=== PATIENT | male | born 1960 | race Caucasian/White ===

== ENCOUNTER 2017-01-11 18:51 | Inpatient (IN) | payer OTHER ==
--- NOTE | ~2017-01-11 | EKG ---
PATIENT: FLAVIO QUINTEROS UNIT #: [id number] Ventricular Rate: 62 BPM Atrial Rate: 62 BPM P-R Interval: 156 ms QRS Duration: 112 ms Q-T Interval: 412 ms QTC Calculation(Bezet): 418 ms P [place]: 76 degrees Calculated R [place]: 17 degrees Calculated T [place]: -28 degrees Diagnosis Line: Normal sinus rhythm Diagnosis Line: Indeterminate axis Diagnosis Line: T wave abnormality, consider inferior ischemia Diagnosis Line: Abnormal ECG Diagnosis Line: When compared with ECG of 12-JAN-2017 10:10, Diagnosis Line: Right bundle branch block is no longer Present Diagnosis Line: Confirmed by NITIN CRESPO MD ([id number]) on 01/14/2017 Diagnosis Line: 7:48:48 PM INTERPRETING MD: CHERIE MAURICE
--- NOTE | ~2017-01-11 | HP ---
Unit #: [id number] #: [id number] Patient: FLAVIO QUINTEROS [id number] [address] [place], [place] [address] [id number] I MR#: [id number] NAME: FLAVIO QUINTEROS ROOM: 567 Age: 56 Sex: M Admission Date: 01/11/2017 : 1960 Attending Physician: Rocael Brown M.D. Primary Care Physician: No Primary Care Physician HISTORY AND PHYSICAL CHIEF COMPLAINT Chest pain. HISTORY Mr. Quinteros is a 56-year-old, white male, known to have insulin dependent diabetes mellitus who awakened at 5:00 this morning with severe nausea, followed by tightness and pressure-like sensation in the lower retrosternal area radiating to the base of the neck, a complaint by diaphoresis, dyspnea and aching pain in the left upper extremity radiating down to the elbow. He denied any radiation of the pain to the intrascapular region or the right subcostal region. He has remained nauseated throughout the day and decided to come to the emergency room. He had not eaten anything unusual the night before. The patient complaints of having has multiple episodes of abdominal pain with bloating nausea over the last month or so and has been occasionally bothered by low retrosternal chest pains. He does not do much physical activity and was still recently busy taking care of an 88-year-old neighbor and denied any chest discomfort or shortness of breath during those chores. He denies any ankle edema, orthopnea, nocturnal dyspnea, syncope, near syncope, transient ischemic attacks or strokes. There is no history of previous SD. SOCIAL HISTORY/PERSONAL HISTORY He smokes half a pack of cigarettes a day and has done that for about 35 years. FAMILY HISTORY Strongly positive for coronary artery disease. His mother, Ms. Kelli Quinteros, had an SD at age 69 and had at age 75. His father, Mr. Ford Quinteros, had his first SD at age 64 and a brother at age 48 of an SD. Two sisters have had coronary artery disease. One sister has PVCs and is under my care. PAST SURGICAL HISTORY Noncontributory. PHYSICAL EXAMINATION GENERAL: Reveals middle age male in no acute cardiorespiratory distress. VITAL SIGNS: Has a blood pressure of 143/79, heart rate is 70 per minute and regular, both carotids have a normal upstroke without any bruits. CARDIAC: Apical impulses normal, both heart sounds are normal, no rubs or clicks are audible, there is no murmur. CHEST: Shows no costochondral tenderness, there is good air entry bilaterally without any rales or rhonchi. ABDOMEN: Shows nontender in intra-abdominal wall, there is no masses or Unit #: [id number] #: [id number] Patient: FLAVIO QUINTEROS organomegaly. RECTAL: Not done. SEARCH LEAD: Within normal limits. DIAGNOSTIC STUDIES CARDIOLOGY STUDIES: Electrocardiogram shows normal sinus rhythm and is within normal limits. LABORATORY STUDIES: Serum troponin level is elevated to 0.97, the rest of the lab investigations are awaited. DIAGNOSIS 1. Chest pain, cannot rule out non ST elevation myocardial infarction. 2. Abdominal pain, nausea and bloating, cannot rule out gallbladder, stones with cholecystitis. 3. Insulin dependent diabetes mellitus. 4. Hypertension. 5. Nicotine abuse. PLAN 1. The patient is being started on long-acting nitrates, Lovenox, Lipitor, lisinopril, and small dose beta-blockers. Intravenous morphine, sulfate and Phenergan will be given to control chest pain and nausea. Repeat cardiac enzymes and electrocardiograms should be performed to rule out evolving SD. He is advised to discontinue use of nicotine completely today. 2. A gallbladder ultrasound would be done tomorrow early in the morning and if normal, will proceed with cardiac catheterization to evaluate coronary artery disease. Dictated by Kathleen Muir/gabrielle TD: 01/12/2017 05:57 JOB #: [id number] HISTORY AND PHYSICAL Page 1 of 1 X Rocael Brown MD HISTORY AND PHYSICAL
--- NOTE | ~2017-01-11 | EKG ---
PATIENT: FLAVIO QUINTEROS UNIT #: [id number] Ventricular Rate: 56 BPM Atrial Rate: 56 BPM P-R Interval: 174 ms QRS Duration: 108 ms Q-T Interval: 426 ms QTC Calculation(Bezet): 411 ms P [place]: 74 degrees Calculated R [place]: 29 degrees Calculated T [place]: 76 degrees Diagnosis Line: Sinus bradycardia Diagnosis Line: Right bundle branch block Diagnosis Line: Abnormal ECG Diagnosis Line: When compared with ECG of 11-JAN-2017 16:43, Diagnosis Line: Right bundle branch block has replaced Incomplete Diagnosis Line: right bundle branch block Diagnosis Line: Confirmed by NITIN CRESPO MD ([id number]) on 01/12/2017 Diagnosis Line: 10:22:44 PM INTERPRETING MD: CHERIE MAURICE
--- NOTE | ~2017-01-11 | DS ---
Unit #: [id number] #: [id number] Patient: FLAVIO QUINTEROS [id number] [address] [place], [place] [address] [id number] I MR#: [id number] NAME: FLAVIO QUINTEROS ROOM: 56 Age: 56 Sex: M Admission Date: 01/11/2017 : 1960 Discharge Date: 01/13/2017 Attending Physician: Rocael Brown M.D. Primary Care Physician: No Primary Care Physician DISCHARGE SUMMARY DISCHARGE DIAGNOSES 1. Non-ST elevation myocardial infarction. 2. Status post cardiac catheterization 01/12/[address] Brown at [facility] that reveals the following results: a) Left main normal. b) Left anterior descending artery with mild ectasia in the proximal third of the left anterior descending. Diagonal branch and septal perforators are normal. c) Left circumflex artery with moderate to severe ectasia involving the proximal half of the circumflex trunk. Posterior marginal branch is occluded at its ostium with SHARA 0 to I flow. d) Right coronary artery with mild ectasia in the proximal half with no significant stenosis. PDA and PLV branches are normal. e) Ejection fraction of 55% with no mitral regurgitation. 3. Status post angioplasty with drug-eluting stent to the posterior marginal branch. 4. Hypertension. 5. Hyperlipidemia. 6. Statin myopathy. 7. Nicotine abuse. 8. Probable obstructive sleep apnea. 9. Diabetes mellitus type 2. 10. Nicotine abuse. DISCHARGE MEDICATIONS 1. Gabapentin 650 mg q. h.s. 2. Lopressor 12.5 mg daily. 3. Lisinopril 10 mg q. h.s. 4. Levemir 20 units subcu q. h.s. 5. Aspirin 81 mg daily. 6. Levothyroxine 175 mcg daily. 7. Plavix 75 mg daily. 8. Nitroglycerin 0.4 mg sublingual q.5 minutes x3 p.r.n. chest pain. HOSPITAL COURSE This is a 56-year-old white male who presented to the emergency room with pressure-like sensation in his lower retrosternal area that radiated to the base of his neck, associated with diaphoresis and dyspnea. He also had a complaint of abdominal discomfort. His initial troponin was 0.97 and peaked at 5.32 ruling him in for an acute non-ST elevation myocardial infarction. His electrocardiogram showed no acute ischemic changes. He was started on anticoagulation with aspirin and Lovenox. Was given nitro paste. Lipid profile was obtained which found him to have elevated LDL of 170. His cholesterol level was 239. He was given Lipitor; however, prior Unit #: [id number] #: [id number] Patient: FLAVIO QUINTEROS to the discharge the patient states that he had significant statin myopathy and was unable to take any statins. Beta santiago and LEIDY inhibitors were also started. Gallbladder ultrasound was obtained to rule out gallbladder disease. It was noted for fatty infiltration only. Cardiac catheterization was recommended for which the patient was agreeable. He was taken to the cardiac catheterization lab where he was found to be have 100% stenosis to the posterior marginal branch of the circumflex. This was the infarct artery. There was ectasia to the right coronary artery and LAD. He had normal left ventricular systolic function. The patient was advised to undergo stent placement for which he agreed. There was successful deployment of a 2.5 x 16 mm Synergy drug-eluting stent into the 100% stenosis of the posterior marginal branch. The stenosis was reduced to 50%. It was then post dilated up to 2.71 mm reducing the stenosis to 0%. The patient was loaded with Brilinta but has significant dyspnea post procedure. Brilinta was discontinued upon discharge. He was started on dual antiplatelet therapy with aspirin and Plavix which he will need for life. Today, the patient is doing well. His right radial site is healing well. MB index of 3.6. Electrocardiogram shows T wave inversion in the inferior lateral leads but no ST elevation. He is allowed to ambulate without recurrent chest pain. Abdominal pain has resolved. It is felt the patient may have obstructive sleep apnea and needs evaluation after discharge. Because of statin intolerance, he received Repatha 140 mg subcu prior to discharge. He is stable for discharge today. ASSESSMENT VITAL SIGNS: Blood pressure 102/68, heart rate 62, temperature 97.8. CHEST: Clear to auscultation. HEART: S1, S2 with regular rate and rhythm. No murmurs, no rubs, no clicks. ABDOMEN: Soft, nontender with bowel sounds present. EXTREMITIES: Without leg edema. Right radial without hematoma. 4+ pulse. Positive sensation. DIAGNOSTIC STUDIES LABORATORY: Glucose 105, BUN 13, creatinine 0.9, sodium 136, potassium 4.1, CK total 415, MB 15.1, MB index 3.6. Cholesterol 239, triglycerides 112, LDL 170, HDL 47, white count 10.1, hemoglobin is 16.1, hematocrit 48.0, platelet count 228. IMAGING: Ultrasound of the gallbladder shows fatty infiltration of the liver, otherwise normal. CARDIOVASCULAR: Electrocardiogram - normal sinus rhythm, rate of 62 beats per minute with T wave inversion in the inferior lateral leads. DISCHARGE INSTRUCTIONS 1. The patient will be discharged home today. 2. Follow up with Dr. Brown on February 04 at 2:45 p.m. 3. Brilinta has been discontinued and the patient will continue on dual antiplatelet therapy with aspirin and Plavix for life. 4. Will decrease metoprolol to 12.5 mg daily. 5. May need sleep study in the future. 6. Return to the office in two weeks for his second Repatha injection. 7. No statin because of statin myopathy. 8. The patient is scheduled for cardiac rehab orientation at [facility] on 01/18/2017 at 5 p.m. Unit #: [id number] #: [id number] Patient: FLAVIO QUINTEROS Dictated by... Bayron Shirley A.P.R.N. for Kathleen Muir/nadia TD: 01/15/2017 06:55 JOB #: [id number] DISCHARGE SUMMARY Page 1 of 1 X Bayron Shirley APRN DISCHARGE SUMMARY
--- NOTE | ~2017-01-11 | CR72 ---
[facility] A Service of [facility] RADIOLOGY TEXT RESULTS PATIENT: FLAVIO QUINTEROS LOCATION: [place] [address] : [birth year] UNIT #: [id number] AGE: [address]: Rocael Brown MD SEX: M ORDER DR: [id number] [facility] [address] [facility]. [place], [place] [address] [id number] I MR#: [id number] Acc #: [id number] NAME: FLAVIO QUINTEROS : 1960 SEX: M STUDY DATE/TIME: 01/11/2017 18:55 UNIT: [facility] ROOM: [id number] STUDY DESCRIPTION: CR Chest Single View Portable Attending Physician: Rocael Brown M.D. Ordering Physician: Guille Chi D.O. Primary Care Physician: No Primary Care Physician MEDICAL IMAGING REPORT This report is preliminary unless electronic signature is present EXAM Portable chest HISTORY Chest pain onset today, shortness of air history of asthma, smoker. COMPARISON 04/30/11 FINDINGS A single AP portable view of the chest shows both lungs to be clear. The heart is normal in size. The mediastinal contour is normal. No significant bone abnormalities are seen. IMPRESSION Normal portable chest. Dictated by... Devang Jimenez M.D. THIS IS AN ELECTRONICALLY VERIFIED REPORT Devang Jimenez M.D. at 01/12/2017 10:59 PM Maxim TD: 01/11/2017 23:33 JOB #: [id number] MEDICAL IMAGING REPORT Page 1 of 1 COPY
--- NOTE | ~2017-01-11 | EKG ---
PATIENT: FLAVIO QUINTEROS UNIT #: [id number] Ventricular Rate: 62 BPM Atrial Rate: 62 BPM P-R Interval: 152 ms QRS Duration: 108 ms Q-T Interval: 414 ms QTC Calculation(Bezet): 420 ms P [place]: 67 degrees Calculated R [place]: 44 degrees Calculated T [place]: 81 degrees Diagnosis Line: Normal sinus rhythm Diagnosis Line: Incomplete right bundle branch block Diagnosis Line: Nonspecific T wave abnormality Diagnosis Line: Abnormal ECG Diagnosis Line: When compared with ECG of 01-MAY-2011 00:51, Diagnosis Line: Incomplete right bundle branch block is now Diagnosis Line: Present Diagnosis Line: Nonspecific T wave abnormality now evident in Diagnosis Line: Lateral leads Diagnosis Line: Confirmed by NITIN CRESPO MD ([id number]) on 01/11/2017 Diagnosis Line: 11:08:58 PM INTERPRETING MD: CHERIE MAURICE
--- NOTE | ~2017-01-11 | US67 ---
[facility] A [facility] RADIOLOGY TEXT RESULTS PATIENT: FLAVIO QUINTEROS LOCATION: [facility] [id number] : [birth year] UNIT #: [id number] AGE: [address]: Rocael Brown MD SEX: M ORDER DR: [id number] [place] [id number] [facility]. [place], [place] [address] [id number] I MR#: [id number] Acc #: [id number] NAME: FLAVIO QUINTEROS. : 1960 SEX: M STUDY DATE/TIME: 01/11/2017 21:10 UNIT: [facility] ROOM: [facility] STUDY DESCRIPTION: US Gallbladder Attending Physician: Rocael Brown M.D. Ordering Physician: Guille Chi D.O. Primary Care Physician: No Primary Care Physician MEDICAL IMAGING REPORT This report is preliminary unless electronic signature is present EXAM Gallbladder ultrasound, 01/11/2017 INDICATIONS Right upper quadrant pain symptoms for a year, insulin requiring patient. No prior surgical history. TECHNIQUE sonographic imaging of the right upper quadrant was performed. We have no comparisons. FINDINGS There was a limited sonographic window. These were the best images possible. The pancreas was obscured by bowel gas and not seen or evaluated. Liver measures about 14 cm long axis to the extent visualized and demonstrates probable fatty infiltration. No focal liver mass, ascites or intrahepatic ductal dilatation. Probable focal fatty sparing in the gallbladder fossa region. Right kidney nonobstructed measures 11.2 cm long axis. Extrahepatic common bile duct measures about 6 mm. No evidence of cholelithiasis. No sonographic Tee's sign was described and there is no pericholecystic fluid. The gallbladder wall was measured as thickened by the technologist and 6 mm but f this appears to be artifactually increased due to oblique imaging of the gallbladder wall. No distinct gallbladder wall thickening is clearly demonstrated on the submitted images. IMPRESSION 1. Fatty infiltration of the liver. 2. Otherwise negative right upper quadrant ultrasound. The pancreas [facility] A Service [facility] RADIOLOGY TEXT RESULTS PATIENT: FLAVIO QUINTEROS LOCATION: [facility] [id number] : [birth year] UNIT #: [id number] AGE: [address]: Rocael Brown MD SEX: M ORDER DR: was not visualized or assessed Dictated by... Adrian Duff M.D. THIS IS AN ELECTRONICALLY VERIFIED REPORT Adrian Duff M.D. at 01/12/2017 11:41 AM Mattie TD: 01/12/2017 00:26 JOB #: [id number] MEDICAL IMAGING REPORT Page 1 of 1 COPY
[2017-01-11 17:23] LABS: BASOPHIL# 0.1 X10e3 (0-0.3); BASOPHIL% 0.6 % (0-2.5); EOSINOPHIL# 0.2 X10e3 (0-0.7); EOSINOPHIL% 1.8 % (0.0-7.0); HEMATOCRIT 51.2 % (38.0-50.0); HEMOGLOBIN 17.2 gm/dL (13.0-16.0); LYMPHOCYTE% 18.3 % (17.0-45.0); MEAN CORPUSCULAR HEMOGLOBIN 31.5 PG (28-34); MEAN CORPUSCULAR HGB CONC 33.5 g/dL (30-36); MEAN PLATELET VOLUME 8.8 FL (6.5-11.5); MONOCYTE# 0.8 X10e3 (0-1.0); MONOCYTE% 7.6 % (3.0-12.0); NEUTROPHIL# 7.9 X10e3 (1.5-7.1); NEUTROPHIL% 71.7 % (40-75); PLATELET COUNT 253 X10e3 (140-420); RED BLOOD COUNT 5.45 X10e (3.90-5.60); RED CELL DISTRIBUTION WIDTH 13.4 % (11.0-15.5)
[2017-01-11 17:25] LABS: DIFF IND NO
[2017-01-11 17:43] LABS: ALBUMIN SERUM 4.6 g/dL (3.5-5.0); BILIRUBIN, DIRECT 0.1 mg/dL (0.0-0.2); BILIRUBIN,INDIRECT 0.6 mg/dL (0.0-0.9); BILIRUBIN,TOTAL 0.7 mg/dL (0.2-2.0); BUN/CREATININE RATIO 11.11; CALCIUM SERUM 8.9 mg/dL (8.4-10.2); CREATININE SERUM 0.9 mg/dL (0.6-1.4); GLOM FILT RATE Estimated 94.5 mL/min (>60); POTASSIUM 3.9 mmol/L (3.5-5.1); PROTEIN TOTAL SERUM 8.1 g/dL (6.0-8.3)
[2017-01-11 17:50] LABS: POC - CKMB 19.6 ng/mL (0.0-7.9); POC - TROPONIN 0.97 ng/mL (<=0.05)
[~2017-01-11 18:51] MED LIST: ASPIRIN81 MG PO; AZOR 10/40 MG T1 TAB PO; LEVOTHROID200 MCG PO; LIPITOR PO; SYNTHROID PO
[2017-01-11 19:30] LABS: POC - CKMB 24.7 ng/mL (0.0-7.9); POC - TROPONIN 1.88 ng/mL (<=0.05)
[2017-01-11 19:52] LABS: PARTIAL THROMBOPLASTIN TIME 26.6 SECONDS (23.5-31.3)
[2017-01-11 20:41] LABS: CHOLESTEROL 239 mg/dL (0-200); HDL CHOLESTEROL 47 mg/dL (29-75); LDL/HDL RATIO 4 RATIO (0-4); TRIGLYCERIDES 112 mg/dL (10-160)
[2017-01-11 20:46] LABS: LDL CHOLESTEROL 170 mg/dL (-130)
[2017-01-12] MEDS ORDERED: LEVEMIR100 UNITS/ SUBQ (00:54)
[2017-01-12] MEDS ORDERED: GABAPENTIN300 MG PO (00:54)
[2017-01-12] MEDS ORDERED: LEVO-T175 MCG PO (00:55)
[2017-01-12 01:02] LABS: %MB 7.6 % (0.0-4.0); MB 48.3 ng/ml
[2017-01-12 07:47] LABS: %MB 6.9 % (0.0-4.0); MB 37.5 ng/ml
[2017-01-12 18:17] LABS: ANGIO %MB 6.3 % (0.0-4.0)
[2017-01-13 08:11] LABS: HEMOGLOBIN 16.1 gm/dL (13.0-16.0); MEAN CELL VOLUME 93.3 FL (83-96); MEAN CORPUSCULAR HEMOGLOBIN 31.3 PG (28-34); MEAN CORPUSCULAR HGB CONC 33.5 g/dL (30-36); MEAN PLATELET VOLUME 8.2 FL (6.5-11.5); RED BLOOD COUNT 5.14 X10e (3.90-5.60); RED CELL DISTRIBUTION WIDTH 13.4 % (11.0-15.5); WHITE BLOOD COUNT 10.1 X10e3 (4.0-10.5)
[2017-01-13 09:19] LABS: CHOLESTEROL 172 mg/dL (0-200); HDL CHOLESTEROL 33 mg/dL (29-75); LDL CHOLESTEROL 118 mg/dL (-130); LDL/HDL RATIO 4 RATIO (0-4); TRIGLYCERIDES 106 mg/dL (10-160)
[2017-01-13 09:31] LABS: BUN/CREATININE RATIO 14.44; CREATININE SERUM 0.9 mg/dL (0.6-1.4); GLOM FILT RATE Estimated 94.5 mL/min (>60); POTASSIUM 4.1 mmol/L (3.5-5.1)
[2017-01-13] MEDS ORDERED: LOPRESSOR PO (09:54)
[2017-01-13] MEDS ORDERED: ZESTRIL10 M1 PO (09:58)
[2017-01-13] MEDS ORDERED: ASPIRIN81 MG PO (09:59)
[2017-01-13] MEDS ORDERED: CLOPIDOGREL75 MG PO (10:00)
[2017-01-13] MEDS ORDERED: NITROGLYGERIN0.4 MG SL (10:02)
[2017-01-13 10:23] LABS: ANGIO %MB 3.6 % (0.0-4.0); ANGIO MB 15.1 ng/ml
== END 2017-01-13 11:47 | disposition home or self-care (01) | DRG 247 ==
LOC: CED 18:51 → CEDOF 19:30 → C5C 01-12
PROVIDERS: Emergency Medicine; Internal Medicine Cardiovascular Disease
PROC: 4A023N7 Measurement of Cardiac Sampling and Pressure, Left Heart, Percutaneous Approach (ICD-10-PCS; principal; 2017-01-12)
PROC: 027034Z Dilation of Coronary Artery, One Artery with Drug-eluting Intraluminal Device, Percutaneous Approach (ICD-10-PCS; 2017-01-12)
PROC: B211YZZ Fluoroscopy of Multiple Coronary Arteries using Other Contrast (ICD-10-PCS; 2017-01-12)
PROC: B215YZZ Fluoroscopy of Left Heart using Other Contrast (ICD-10-PCS; 2017-01-12)
PROC: B24BYZZ Ultrasonography of Heart with Aorta using Other Contrast (ICD-10-PCS; 2017-01-12)
DX: I21.4 Non-ST elevation (NSTEMI) myocardial infarction (principal); G72.89 Other specified myopathies; I10 Essential (primary) hypertension; F17.210 Nicotine dependence, cigarettes, uncomplicated; Z82.49 Family history of ischemic heart disease and other diseases of the circulatory system; R10.9 Unspecified abdominal pain; E11.9 Type 2 diabetes mellitus without complications; Z79.4 Long term (current) use of insulin; G47.33 Obstructive sleep apnea (adult) (pediatric); I25.118 Atherosclerotic heart disease of native coronary artery with other forms of angina pectoris; E78.5 Hyperlipidemia, unspecified
CPT/HCPCS: 36415; 71010; 76705; 80048; 80061; 80076; 82550; 82553; 82947; 84484; 85025; 85027; 85347; 85610; 85730; 93005; 93306; 99285; C1769; C1874; C1887; C1894; J1327; J1644; J1650; J2250; J2370; J2405; J3010